=== PATIENT | female | born 1985 | race Hispanic/Latino ===

== ENCOUNTER 2016-09-08 19:59 | Emergency (ER) | payer OTHER ==
[2016-09-08 20:13] VITALS: BP 134/82; PULSE 59; RESP 16; TEMP 98.8; O2SAT 100
[2016-09-08] MEDS ORDERED: TDAP Vaccine 0.5 mL Syr IM ONE (21:07)
--- NOTE | 2016-09-08 21:18 | ED PDOC ---
Lower Extremity Pain/Injury Time Seen by Provider: 09/08/16 20:15 Chief Complaint (Nursing): Lower Extremity Problem/Injury Chief Complaint (Provider): right great toe injury History Per: Patient History/Exam Limitations: no limitations Onset/Duration Of Symptoms: Mins (prior to arrival ) Additional Complaint(s): Evie Olivarez is a 31 year old female, with no previous medical history, who presents to the ED with complaints of an abrasion and pain to the right great toe secondary to dropping the base of a liquor blender on it just prior to arrival. Patient has moderate pain to affected area but denies any numbness or tingling. She is not sure of last tetanus. PMD: none provided Past Medical History Reviewed: Historical Data, Nursing Documentation, Vital Signs Vital Signs: Last Vital Signs Temp 98.8 F 09/08/16 20:10 Pulse 59 L 09/08/16 20:10 Resp 16 09/08/16 20:10 BP 134/82 09/08/16 20:10 Pulse Ox 100 09/08/16 20:10 - Medical History PMH: No Chronic Diseases - Surgical History Surgical History: Appendectomy, Hernia Repair Other surgeries: left ovarian cyst removal - Family History Family History: States: No Known Family Hx - Living Arrangements Living Arrangements: With Family - Social History Current smoker - smoking cessation education provided: No Ex-Smoker (has not smoked in the last 12 months): No Alcohol: None - Immunization History Hx Tetanus Toxoid Vaccination: No (not sure of last tetanus booster) - Home Medications Home Medications: Ambulatory Orders Medication Instructions Recorded Cephalexin [Keflex] 500 mg PO TID #21 capsule 09/08/16 - Allergies Allergies/Adverse Reactions: Allergies Allergy/AdvReac Type Severity Reaction Status Date / Time erythromycin base Allergy VOMITING Verified 09/08/16 20:09 Review of Systems ROS Statement: Except As Marked, All Systems Reviewed And Found Negative Musculoskeletal: Positive for: Foot Pain (right great toe injury) Physical Exam - Reviewed Nursing Documentation Reviewed: Yes Vital Signs Reviewed: Yes - Physical Exam Appears: Positive for: Well, Non-toxic, No Acute Distress Respiratory: Negative for: Respiratory Distress Pulses-Dorsalis Pedis (R): 2+ Extremity: Positive for: Normal ROM, Capillary Refill (< 2 seconds ), Other ( swelling and abrasion to proximal eponychial fold of right great toe, mild active bleeding, no lifting of toenail, no subungual hematoma ) Neurologic/Psych: Positive for: Alert, Oriented - Laboratory Results Urine POC: Negative - ECG O2 Sat by Pulse Oximetry: 100 (RA) Pulse Ox Interpretation: Normal - Other Rad Right great toe x-ray X-Ray: Interpreted by Me, Viewed By Me X-Ray Interpretation: no fx, no dis Medical Decision Making Medical Decision Making: Initial Plan: Right great toe crush injury Initial Plan: * x-ray right foot * Tetanus booster * motrin Wound to great toe was cleansed with NS and betadine, bacitracin and bandage applied. Ortho shoe then applied to right foot. N/V intact s/p placement. Rx keflex given. Advised NSAID's prn pain. Podiatry referral provided for follow up. Scribe Attestation: Documented by Lashawn Brannon, acting as a scribe for Olga Bates PA-C. Provider Scribe Attestation: All medical record entries made by the Scribe were at my direction and personally dictated by me. I have reviewed the chart and agree that the record accurately reflects my personal performance of the history, physical exam, medical decision making, and the department course for this patient. I have also personally directed, reviewed, and agree with the discharge instructions and disposition. Disposition - Clinical Impression Clinical Impression: Crush injury of toe, Toe abrasion, Requires a booster tetanus - Patient ED Disposition Is Patient to be Admitted: No Counseled Patient/Family Regarding: Studies Performed, Diagnosis, Need For Followup, Rx Given - Disposition Referrals: Abner Zacarias, DANIELAM [[facility]] - Disposition: Routine/Home Disposition Time: 21:39 Condition: STABLE Additional Instructions: Keep wound clean and dry. Wash daily with soap and water and reapply bacitracin once per day only. Ice and elevate affected area. Take rx meds as directed. Follow up with busgirl in 2-3 days. Prescriptions: Cephalexin [Keflex] 500 mg PO TID #21 capsule Instructions: Crush Injury (ED), Foot Contusion (ED), Abrasion (ED), Diphtheria /Acellular Pertussis/Tetanus Booster Vaccine (Tdap) (Injection)
--- NOTE | 2016-09-09 10:08 | RAD ---
Right foot History: Trauma. Findings: No acute fracture. Impression: No acute fracture.
== END 2016-09-08 22:01 | disposition home or self-care (01) ==
LOC: H.ER 19:59
DX: S97.81XA Crushing injury of right foot, initial encounter (principal); W22.8XXA Striking against or struck by other objects, initial encounter; Y92.89 Other specified places as the place of occurrence of the external cause; Z87.891 Personal history of nicotine dependence